=== PATIENT | male | born 1995 | race Hispanic/Latino ===

== ENCOUNTER 2021-04-19 18:47 | Inpatient (IN) | payer SELFPAY ==
[2021-04-19] MEDS ORDERED: Morphine 4 MG/ML VIAL ONE (19:59)
[2021-04-19] MEDS ORDERED: Bupivacaine 0.25% HCL 30 ML VIAL ONE (20:47)
[2021-04-19] MEDS ORDERED: Bupivacaine PF 0.5% 30 ML VIAL ONE (20:49)
[2021-04-20] MEDS ORDERED: Morphine 2 MG/ML VIAL ONE ×2 (04:44→09:10)
[2021-04-20 05:34] LABS: SARS-CoV-2 NAA Rapid Test Not Detected (NotDetected)
== END 2021-04-20 11:40 | disposition home or self-care (01) | DRG 563 ==
LOC: CSHERS 18:47 → CSHERHOLD 04-20 01:18
PROVIDERS: ADMIT Orthopaedic Surgery; ATTEND Orthopaedic Surgery
DX: M24.411 Recurrent dislocation, right shoulder (principal); Z20.822 Contact with and (suspected) exposure to COVID-19
CPT/HCPCS: 96372; 96374; 96376; J2270; S0020; U0002